=== PATIENT | female | born 1935 | race Caucasian/White ===

== ENCOUNTER → 2016-03-08 | Outpatient (CLI) | payer OTHER ==
--- NOTE | 2016-03-08 12:12 | DX ---
Bilateral Knees, 3 Views Each Side Reason for examination: Pain. Postoperative follow up; comparison to previous left knee series Sept2015. Findings: Stable postoperative changes of total left knee arthroplasty are noted. No evidence for pro sthetic loosening. Sclerotic changes involving the left patella are noted. A minimal joint effusion i s suspected on the left. Degenerative changes are noted involving the right knee with mild joint spa ce loss seen involving the medial, lateral and patellofemoral compartments. Chondrocalcinosis and men iscal calcification is suspected on the right side. No significant joint effusion is noted on the rig ht. Arterial calcifications are identified more prominent on the left. IMPRESSION: Postoperative changes of total left knee arthroplasty and degenerative changes noted invo lving the right knee.
== END ==
LOC: BMCIMAGING 10:54
PROVIDERS: ATTEND Orthopaedic Surgery
DX: M25.562 Pain in left knee (principal); Z96.652 Presence of left artificial knee joint

== ENCOUNTER → 2017-04-16 | Outpatient (CLI) | payer OTHER | LOC: FIMAGING 16:36 | PROVIDERS: ATTEND Orthopaedic Surgery | DX: Z01.818 Encounter for other preprocedural examination (principal); M17.11 Unilateral primary osteoarthritis, right knee; M11.261 Other chondrocalcinosis, right knee; M71.21 Synovial cyst of popliteal space [Baker], right knee ==

== ENCOUNTER 2017-04-23 11:45 | Inpatient (IN) | payer OTHER ==
--- NOTE | 2017-04-05 10:53 | ASMTCMCOM ---
CM Note CM Note Notes: Call from [facility] in pre-anesthesia testing, Pt having knee replacement surgery 04/23/17 and is interested in going to [facility] [place]. CM to follow once pt admits. Date Signed: 04/05/2017 10:52 AM Electronically Signed By:MANDIE Stapleton
[2017-04-25] MEDS ORDERED: ROPIVACAINE 0.2% 80 MG, EPINEPHrine 0.2 MG, KETOROLAC TROMETHAMINE 30 MG, morphINE 10 M... IU ONE (11:04)
[2017-04-26] MEDS ORDERED: NS IV ONE (06:00)
[2017-04-26] MEDS ORDERED: BUPI/epINEPH/KETOROLAC/morphINE IU ONE (06:00)
[2017-04-26] MEDS ORDERED: TRANEXAMIC ACID IV ONE (06:00)
[2017-04-26] MEDS ORDERED: CALCIUM CHLORIDE 1 GM/10 ML INJ ONE (10:21)
[2017-04-26] MEDS ORDERED: THROMBIN (BOVINE) 5,000 UNIT VIAL TP ONE (10:21)
[2017-04-26] MEDS ORDERED: ceFAZolin 1 GM/5 ML SYR ONE ×2 (10:22→15:44)
[2017-04-26] MEDS ORDERED: FAMOTIDINE 20 MG TAB PO ONE (12:02)
[2017-04-26] MEDS ORDERED: ceFAZolin 2 GM/SWFI 2 GM/20 ML SYR IVP ONE (12:02)
[2017-04-26] MEDS ORDERED: ACETAMINOPHEN 325 MG TAB PO ONE (12:02)
[2017-04-26] MEDS ORDERED: LR 1,000 ML IV ONE (12:03)
[2017-04-26] MEDS ORDERED: LIDOCAINE 1% 2 ML INJ ID PRN (12:03)
[2017-04-26] MEDS ORDERED: ALBUTEROL 3 ML DEYVIAL IH PRN (14:36)
[2017-04-26] MEDS ORDERED: HYDROCODONE/APAP 5/325 TAB PO PRN (14:36)
[2017-04-26] MEDS ORDERED: ONDANSETRON 4 MG/2 ML VIAL IVP PRN ×2 (14:36→17:35)
[2017-04-26] MEDS ORDERED: NALOXONE HCL 0.4 MG/ML INJ IVP PRN (14:36)
[2017-04-26] MEDS ORDERED: DEXAMETHASONE 4 MG/ML VIAL IVP PRN (14:36)
[2017-04-26] MEDS ORDERED: MIDAZOLAM 2 MG/2 ML VIAL IVP ONE (14:36)
[2017-04-26] MEDS ORDERED: fentaNYL 100 MCG/2 ML INJ IVP PRN (14:36)
--- NOTE | 2017-04-26 14:38 | PDANEPAE ---
ANE History of Present Illness Right TKA ANE Past Medical History - Cardiovascular History Hx Hypertension: Yes Hx Arrhythmias: No Hx Chest Pain: No Hx Coronary Artery / Peripheral Vascular Disease: No Hx CHF / Valvular Disease: No Hx Palpitations: No Cardiovascular History Comment: HYPERLIPIDEMIA. pcp monitors - Pulmonary History Hx COPD: No Hx Asthma/Reactive Airway Disease: No Hx Recent Upper Respiratory Infection: No Hx Oxygen in Use at Home: No Hx Sleep Apnea: No Sleep Apnea Screening Result - Last Documented: Negative Pulmonary History Comment: HX PE 2012 FOLLOWING BACK FUSION 2012 - Neurologic History Hx Cerebrovascular Accident: No Hx Seizures: No Hx Dementia: No Neurologic History Comment: PERIPHERAL NEUROPATHY - FEET/HANDS. hx of lumbar and cervical fusion - Endocrine History Hx Diabetes: No - Renal History Hx Renal Disorders: Yes Renal History Comment: frequency. "leaking" - Liver History Hx Hepatic Disorders: No - Neurological & Psychiatric Hx Hx Neurological and Psychiatric Disorders: No - Cancer History Hx Cancer: No Cancer History Comment: SKIN CA - Congenital Disorder History Hx Congenital Disorders: No - GI History Hx Gastrointestinal Disorders: Yes Gastrointestinal History Comment: CHRONIC CONSTIPATION - Other Health History Other Health History: wears glasses. arthritis to most joints - Chronic Pain History Chronic Pain: Yes (right knee and most joints) - Surgical History Prior Surgeries: 09/06/15 left TKA with Repine. LUMBAR FUSION 2011 ([place]). ADBDOMINAL SURG- STOMACH LESIONS 2010 ([place]). CERVICAL FUSION 2008. L MENISCUS X 2 ANE Review of Systems Review of Systems: - Exercise capacity METS (RN): 4 METS ANE Patient History - Allergies Allergies/Adverse Reactions: adhesive tape Allergy (Verified 04/04/17 12:11) Rash tramadol Allergy (Verified 04/04/17 12:11) "i just lose it, it doesn't agree with me" - Home Medications Home Medications: Acyclovir 5% [Zovirax 5% Cream 2gm (RX)] 1 evan TP DAILY PRN 02/16/14 [Last Taken 03/27/17] Aspirin [Aspirin 81mg (*)] 81 mg PO HS 02/16/14 [Last Taken 04/19/17] Cholecalciferol Vit D3 [Vitamin D3 (*)] 2,000 units PO DAILY 02/16/14 [Last Taken 04/19/17] Fluticasone Nasal [Flonase Nasal [place]] 1 sprays NASAL HS PRN 02/16/14 [Last Taken 04/24/17] Gabapentin [Neurontin 300 MG (*)] 300 mg PO TID 02/16/14 [Last Taken 04/19/17] Herbals/Supplements -Info Only 1 ea PO DAILY 02/16/14 [Last Taken 04/19/17] Multivitamins [Multivitamin (*)] 1 each PO DAILY 02/16/14 [Last Taken 04/19/17] Sertraline HCl [Zoloft 100mg (*)] 100 mg PO HS 02/16/14 [Last Taken 04/25/17] Timolol 0.5% [TIMOPTIC 0.5% (*)] 1 drops EACHEYE DAILY 02/16/14 [Last Taken 07:30] celeCOXIB [Celebrex (*)] 200 mg PO BID 02/16/14 [Last Taken 04/19/17] valACYclovir [Valtrex (*)] 2,000 mg PO BID PRN 02/16/14 [Last Taken 03/27/17] Atorvastatin Calcium [Lipitor 10 mg (*)] 5 mg PO DAILY 09/06/15 [Last Taken 09/29] Sennosides [Senokot] 1 each PO BID PRN 09/06/15 [Last Taken 08/13/15] C/E/Zn/Cu/OM3/DHA/EPA/LUT/ZEAX [Preservision Areds 2 Softgel] 1 each PO BID [Last Taken 04/19/17] Cyanocobalamin [Vitamin B12 (*)] 1,000 mcg PO DAILY 04/03/17 [Last Taken ] Hydrocodone/APAP 5/325 [[place] 5/325 (*)] 1 tab PO DAILY PRN 04/03/17 [Last Taken 08/13/15] Lisinopril [Zestril 10 mg (*)] 10 mg PO DAILY 04/03/17 [Last Taken 04/19/17] Sodium Chloride 2% [Gagandeep-128 2% (RX)] 1 drop EACHEYE BID 04/03/17 [Last Taken 07:30] diphenhydrAMINE [Benadryl 25 MG (*)] 25 mg PO HS PRN 04/03/17 [Last Taken ] - NPO status NPO Since - Liquids (Date): 04/25/17 NPO Since - Liquids (Time): 22:30 NPO Since - Solids (Date): 04/25/17 NPO Since - Solids (Time): 18:00 - Smoking Hx Smoking Status: Former smoker - Family Anes Hx Family Hx Anesthesia Complications: NONE ANE Labs/Vital Signs - Vital Signs Blood Pressure: 151/84 Heart Rate: 70 Respiratory Rate: 18 O2 Sat (%): 96 Height: 167.64 cm Weight: 72.121 kg ANE Physical Exam - Airway Neck exam: FROM Mallampati Score: Class 2 Mouth exam: normal dental/mouth exam - Pulmonary Pulmonary: clear to auscultation - Cardiovascular Cardiovascular: regular rate and rhythym - ASA Status ASA Status: III ANE Anesthesia Plan Anesthesia Plan: spinal Total IV Anesthesia: Yes
[2017-04-26] MEDS ORDERED: HYDROmorphONE/DILAUDID 2 MG/ML INJ IVP PRN (14:51)
[2017-04-26] MEDS ORDERED: PROPOFOL/EMULSION 500 MG/50 ML BOTTLE IV ONE ×2 (15:24)
[2017-04-26] MEDS ORDERED: fentaNYL 100 MCG/2 ML INJ ONE ×2 (15:26→17:06)
[2017-04-26] MEDS ORDERED: DEXAMETHASONE 4 MG/ML VIAL ONE (15:27)
[2017-04-26] MEDS ORDERED: ONDANSETRON 4 MG/2 ML VIAL ONE (15:27)
[2017-04-26] MEDS ORDERED: ROCURONIUM 50 MG/5 ML VIAL ONE (17:25)
[2017-04-26] MEDS ORDERED: METOCLOPRAMIDE 10 MG/2 ML VIAL IVP PRN (17:35)
[2017-04-26] MEDS ORDERED: PROMETHAZINE HCL 25 MG SUPPR PR PRN (17:35)
[2017-04-26] MEDS ORDERED: DIAZEPAM 5 MG TAB PO PRN (17:35)
[2017-04-26] MEDS ORDERED: MAGNESIUM HYDROXIDE 30 ML UDCUP PO PRN (17:35)
[2017-04-26] MEDS ORDERED: diphenhydrAMINE 25 MG CAP PO PRN (17:35)
[2017-04-26] MEDS ORDERED: POLYETHYLENE GLYCOL 3350 17 GM PKT PO PRN (17:35)
[2017-04-26] MEDS ORDERED: LACTULOSE 20 GM/30 ML UDCUP PO PRN (17:35)
[2017-04-26] MEDS ORDERED: DIPHENOXYLATE/ATROPINE LOMOTIL 1 TAB PO PRN (17:35)
[2017-04-26] MEDS ORDERED: BISACODYL 10 MG SUPP PR PRN (17:35)
[2017-04-26] MEDS ORDERED: ONDANSETRON DISINTEGRATING 4 MG TAB PO PRN (17:35)
[2017-04-26] MEDS ORDERED: PROMETHAZINE HCL 25 MG/ML INJ IVP PRN (17:35)
[2017-04-26] MEDS ORDERED: TEMAZEPAM 15 MG CAP PO PRN (17:35)
--- NOTE | 2017-04-26 17:35 | PDHPUP ---
History & Physical Update H&P update statement: This history and physical update is based on an assessment of the patient which was completed after admission or registration (within 24 hours), but prior to the surgery/procedure. H&P update: no change in patient's condition since H&P completed
[2017-04-26] MEDS ORDERED: ACYCLOVIR 5% TP PRN (17:36)
[2017-04-26] MEDS ORDERED: valACYclovir 500 MG TAB PO PRN (17:36)
[2017-04-26] MEDS ORDERED: LR 1,000 ML IV SCH (18:00)
[2017-04-26] MEDS ORDERED: LABETALOL HCL 5 MG/ML 20 ML MDV ONE (18:28)
[2017-04-26] MEDS: LABETALOL HCL 5 MG/ML 20 ML MDV IV PRN ×2 (18:30→18:58)
[2017-04-26] MEDS: SERTRALINE HCL 100 MG TAB PO SCH (21:27)
[2017-04-26] MEDS: TRANEXAMIC ACID 650 MG TAB PO SCH (21:27)
[2017-04-26] MEDS: FAMOTIDINE 20 MG TAB PO SCH (21:27)
[2017-04-26] MEDS: SENNOSIDES/DOCUSATE SODIUM TAB PO SCH (21:28)
[2017-04-26] MEDS: GABAPENTIN 300 MG CAP PO SCH (21:28)
[2017-04-26] MEDS: ASPIRIN 325 MG TAB PO SCH (22:10)
[2017-04-26] MEDS: ACETAMINOPHEN 325 MG TAB PO SCH (22:10)
[2017-04-26] MEDS: [UNRECOGNIZED DRUG - OTHER] EACHEYE SCH (22:11)
[2017-04-26] MEDS: SODIUM CHLORIDE 2% EACHEYE SCH (22:11)
[2017-04-27] MEDS: ACETAMINOPHEN 325 MG TAB PO SCH ×4 (00:04→18:27)
[2017-04-27] MEDS: ceFAZolin 2 GM/SWFI 2 GM/20 ML SYR IVP SCH ×2 (00:05→09:08)
[2017-04-27] MEDS: TRANEXAMIC ACID 650 MG TAB PO SCH ×3 (03:02→16:07)
[2017-04-27] MEDS: oxyCODONE IR 5 MG TAB PO PRN ×2 (05:28→09:10)
--- NOTE | 2017-04-27 06:42 | PDIAF ---
- Diagnosis Diagnosis: s/p tka Code Status: Full Code - Medication Management Discharge Medications: Medications to Continue on Transfer Acyclovir 5% [Zovirax 5% Cream 2gm (RX)] 1 evan TP DAILY PRN 02/16/14 [Last Taken 03/27/17] Aspirin [Aspirin 81mg (*)] 81 mg PO HS 02/16/14 [Last Taken 04/19/17] Cholecalciferol Vit D3 [Vitamin D3 (*)] 2,000 units PO DAILY 02/16/14 [Last Taken 04/19/17] Fluticasone Nasal [Flonase Nasal [place]] 1 sprays NASAL HS PRN 02/16/14 [Last Taken 04/24/17] Gabapentin [Neurontin 300 MG (*)] 300 mg PO TID 02/16/14 [Last Taken 04/19/17] Herbals/Supplements -Info Only 1 ea PO DAILY 02/16/14 [Last Taken 04/19/17] Multivitamins [Multivitamin (*)] 1 each PO DAILY 02/16/14 [Last Taken 04/19/17] Sertraline HCl [Zoloft 100mg (*)] 100 mg PO HS 02/16/14 [Last Taken 04/25/17] Timolol 0.5% [TIMOPTIC 0.5% (*)] 1 drops EACHEYE DAILY 02/16/14 [Last Taken 07:30] celeCOXIB [Celebrex (*)] 200 mg PO BID 02/16/14 [Last Taken 04/19/17] valACYclovir [Valtrex (*)] 2,000 mg PO BID PRN 02/16/14 [Last Taken 03/27/17] Atorvastatin Calcium [Lipitor 10 mg (*)] 5 mg PO DAILY 09/06/15 [Last Taken 09/29] Sennosides [Senokot] 1 each PO BID PRN 09/06/15 [Last Taken 08/13/15] C/E/Zn/Cu/OM3/DHA/EPA/LUT/ZEAX [Preservision Areds 2 Softgel] 1 each PO BID [Last Taken 04/19/17] Cyanocobalamin [Vitamin B12 (*)] 1,000 mcg PO DAILY 04/03/17 [Last Taken ] Hydrocodone/APAP 5/325 [[place] 5/325 (*)] 1 tab PO DAILY PRN 04/03/17 [Last Taken 08/13/15] Lisinopril [Zestril 10 mg (*)] 10 mg PO DAILY 04/03/17 [Last Taken 04/19/17] Sodium Chloride 2% [Gagandeep-128 2% (RX)] 1 drop EACHEYE BID 04/03/17 [Last Taken 07:30] diphenhydrAMINE [Benadryl 25 MG (*)] 25 mg PO HS PRN 04/03/17 [Last Taken ] Discharge Medications: Refer to the Discharge Home Medication list for PRN reason. - Orders Services needed: Physical Therapy Diet Recommendation: no restrictions on diet Diet Texture: Regular Texture Diet Activity/Weight Bearing Restrictions: wbat. rom as marshal. daily dressing changes. no soaking or immersion. may shower without bandage. f/u at two weeks [facility]. seek attn for increasing pain, redness, drainage or other focal complaint - Follow Up Care Current Providers and Referrals: Alice Michel MD [Primary Care Provider] - Demarcus Rivera MD [Medical Doctor] -
--- NOTE | 2017-04-27 07:14 | SOAPPROG ---
SOAP Progress Note Assessment/Plan: Assessment: s/p right tka Plan:wait 3 mn for snf will obtain hospitalist consult f/u at two week no acute issues mobilize with pt dvt precautions 04/27/17 07:12 Subjective: mild pain no cp or sob no dizzyness Objective: Vital Signs Temp Pulse Resp BP Pulse Ox 36.5 C 70 16 117/72 98 04/27/17 04:00 04/27/17 04:00 04/27/17 04:00 04/27/17 04:00 04/27/17 04:00 Laboratory Results 04/27/17 04:18 04/26/17 04/27/17 04/28/17 05:59 05:59 05:59 Intake Total 3230 Output Total 700 600 Balance 2530 -600 dressing intact intact pf,df,ehl toes warm and pink neg homans zaynab xrays stable anatomic alignement no fx or lucency] ICD10 Worksheet Patient Problems: Problems Problem Status Onset Arthralgia of left knee Acute
[2017-04-27] MEDS ORDERED: LISINOPRIL 10 MG TAB PO SCH (09:00)
[2017-04-27] MEDS: SENNOSIDES/DOCUSATE SODIUM TAB PO SCH ×2 (09:09→21:32)
[2017-04-27] MEDS: ATORVASTATIN CALCIUM 10 MG TAB PO SCH (09:09)
[2017-04-27] MEDS: ASPIRIN 325 MG TAB PO SCH (09:09)
[2017-04-27] MEDS: FAMOTIDINE 20 MG TAB PO SCH ×2 (09:09→21:32)
[2017-04-27] MEDS: GABAPENTIN 300 MG CAP PO SCH ×3 (09:10→21:31)
[2017-04-27] MEDS: [UNRECOGNIZED DRUG - OTHER] EACHEYE SCH ×2 (10:05→21:34)
[2017-04-27] MEDS: SODIUM CHLORIDE 2% EACHEYE SCH ×2 (10:05→21:34)
--- NOTE | 2017-04-27 10:57 | PDMN ---
Medical Necessity Medical necessity: Change to IP, as of 04/27/17, per MD; los >2 mn s/p R TKA POD #1; pt with decreased strength, unsafe to dc home independently; admit for further monitoring & therapies; comorbid advanced age; per progress note & order 04/27/17
[2017-04-27] MEDS ORDERED: diphenhydrAMINE 25 MG CAP PO PRN (13:33)
[2017-04-27] MEDS: HYDROCODONE/APAP 5/325 TAB PO PRN ×2 (13:50→16:51)
[2017-04-27] MEDS ORDERED: TRANEXAMIC ACID 650 MG TAB PO ONE (14:00)
[2017-04-27] MEDS: TIMOLOL 0.5% 15 ML OPHT.BTL EACHEYE SCH (14:01)
--- NOTE | 2017-04-27 14:06 | GCON ---
[f rep st] CONSULTATION DATE OF CONSULTATION: 04/27/2017 REFERRING PHYSICIAN: Demarcus Rivera MD CONSULTING QUESTION: Medical management. HISTORY OF PRESENT ILLNESS: An 81-year-old female presenting for elective right total knee arthropla sty. The patient is postop and feeling well without specific complaint. No complications noted duri ng her surgical intervention and actively denying any shortness of breath, chest pain, palpitations, or abdominal upset. She has experienced some urinary retention. Denies dysuria. Denies hematuria. Has mild constipation and reports this is often common for her. Denies any lower extremity edema. Does believe the block from her surgery is wearing off and starting to have more sensation in her a l eg. Has been comfortable ambulating. PAST MEDICAL HISTORY: 1. Glaucoma. 2. Hypertension. SOCIAL HISTORY: Positive for a 15-xaky-wrwa history of smoking, none currently. 1 scotch in the [employer]. No illicit drugs or marijuana. FAMILY HISTORY: Positive for heart disease in her father. REVIEW OF SYSTEMS: A 10-point review of systems is negative with the exception of reported in the HP I. PHYSICAL EXAMINATION: VITAL SIGNS: Blood pressure is 101/55, heart rate 63, respiratory rate 16, sa tting 93% in room air, afebrile. GENERAL: This is a very pleasant 81-year-old female in no acute dis tress. HEENT: Notable for moist mucous membranes. Eyes negative for any icterus. CARDIAC: Regula r rate and rhythm. A quiet systolic murmur is appreciated. GASTROINTESTINAL: Positive bowel sounds . Abdomen soft and nontender. MUSCULOSKELETAL: Negative for any lower extremity edema. SCDs are in place. SKIN: Negative for any rashes. NEUROLOGIC: Alert and oriented x3. PSYCHIATRIC: Pleasant and cooperative on interview and examination. DATA: Hemoglobin 9.2, hematocrit is 28.1. Knee x-ray, which I personally reviewed and interpreted, shows appropriate postoperative alignment. ASSESSMENT AND PLAN: This is an 81-year-old female status post elective total knee arthroplasty. 1. Hypertension: Patient's blood pressures are borderline low at this time. Will put her single an tihypertensive on hold currently. If her blood pressures rebound back up, we can reinitiate in the m orning. She has received appropriate fluids and is taking p.o. meals and medications. Suspect will see normal rebound of her pressures by tomorrow. 2. Glaucoma: Will ask that the pharmacist reconcile all the remaining eyedrops on her list, so we c an continue her home medications. 3. Acute urinary retention: Suspect likely related to intraoperative sedation and pain medications. Will bladder scan and straight cath for greater than 700 mL in her bladder. Optimistic she will li palmira start urinating without complication in the next 24 hours. She does have a history of postop ur inary tract infections. We will send her urine for analysis next time she voids. 4. Depression: Will continue her outpatient medications without change.. 5. Prophylaxis: Per the orthopedic surgeons. 6. Diet: Regular. DISPOSITION: I expect greater than 2 midnights as the patient is recovering postoperatively. Will n eed therapy evaluations for safe disposition. , I have discussed the case with the RN. Will continue p.r.n. straight cathing until the patient begins voiding on her home. Thank you for the consultation. We will follow along with. /[id number]/MODL
--- NOTE | 2017-04-27 14:25 | ASMTCMCOM ---
CM Note CM Note Notes: Pt s/p elective TKA. Pt lives alone in a second floor apartment w adult dghtr local. PT/OT rec SNF, pt requests referral to [facility] which was sent in [employer]. D/c plan of care: SNF when medically stable Date Signed: 04/27/2017 02:24 PM Electronically Signed By:MADNIE Stapleton
[2017-04-27] MEDS: SERTRALINE HCL 100 MG TAB PO SCH (21:32)
[2017-04-28] MEDS: ACETAMINOPHEN 325 MG TAB PO SCH ×4 (01:30→12:32)
[2017-04-28] MEDS: HYDROCODONE/APAP 5/325 TAB PO PRN ×3 (07:15→20:50)
[2017-04-28] MEDS: ATORVASTATIN CALCIUM 10 MG TAB PO SCH (09:04)
[2017-04-28] MEDS: GABAPENTIN 300 MG CAP PO SCH ×3 (09:04→20:51)
[2017-04-28] MEDS: ASPIRIN 325 MG TAB PO SCH (09:04)
[2017-04-28] MEDS: SENNOSIDES/DOCUSATE SODIUM TAB PO SCH ×2 (09:05→20:51)
[2017-04-28] MEDS: FAMOTIDINE 20 MG TAB PO SCH ×2 (09:05→20:51)
[2017-04-28] MEDS: [UNRECOGNIZED DRUG - OTHER] EACHEYE SCH ×2 (09:06→20:49)
[2017-04-28] MEDS: SODIUM CHLORIDE 2% EACHEYE SCH ×2 (09:06→20:49)
[2017-04-28] MEDS: TIMOLOL 0.5% 15 ML OPHT.BTL EACHEYE SCH (09:12)
--- NOTE | 2017-04-28 09:24 | PDIAF ---
- Diagnosis Diagnosis: s/p tka Code Status: Full Code - Medication Management Discharge Medications: Medications to Continue on Transfer Acyclovir 5% [Zovirax 5% Cream 2gm (RX)] 1 evan TP DAILY PRN 02/16/14 [Last Taken 03/27/17] Aspirin [Aspirin 81mg (*)] 81 mg PO HS 02/16/14 [Last Taken 04/19/17] Cholecalciferol Vit D3 [Vitamin D3 (*)] 2,000 units PO DAILY 02/16/14 [Last Taken 04/19/17] Fluticasone Nasal [Flonase Nasal [place]] 1 sprays NASAL HS PRN 02/16/14 [Last Taken 04/24/17] Gabapentin [Neurontin 300 MG (*)] 300 mg PO TID 02/16/14 [Last Taken 04/19/17] Herbals/Supplements -Info Only 1 ea PO DAILY 02/16/14 [Last Taken 04/19/17] Multivitamins [Multivitamin (*)] 1 each PO DAILY 02/16/14 [Last Taken 04/19/17] Sertraline HCl [Zoloft 100mg (*)] 100 mg PO HS 02/16/14 [Last Taken 04/25/17] Timolol 0.5% [TIMOPTIC 0.5% (*)] 1 drops EACHEYE DAILY 02/16/14 [Last Taken 07:30] celeCOXIB [Celebrex (*)] 200 mg PO BID 02/16/14 [Last Taken 04/19/17] valACYclovir [Valtrex (*)] 2,000 mg PO BID PRN 02/16/14 [Last Taken 03/27/17] Atorvastatin Calcium [Lipitor 10 mg (*)] 5 mg PO DAILY 09/06/15 [Last Taken 09/29] Sennosides [Senokot] 1 each PO BID PRN 09/06/15 [Last Taken 08/13/15] C/E/Zn/Cu/OM3/DHA/EPA/LUT/ZEAX [Preservision Areds 2 Softgel] 1 each PO BID [Last Taken 04/19/17] Cyanocobalamin [Vitamin B12 (*)] 1,000 mcg PO DAILY 04/03/17 [Last Taken ] Lisinopril [Zestril 10 mg (*)] 10 mg PO DAILY 04/03/17 [Last Taken 04/19/17] Sodium Chloride 2% [Gagandeep-128 2%] 1 drop EACHEYE BID 04/03/17 [Last Taken 07:30] diphenhydrAMINE [Benadryl 25 MG (*)] 25 mg PO HS PRN 04/03/17 [Last Taken ] Aspirin [Aspirin 325 mg (*)] 325 mg PO DAILY tab 04/28/17 [Last Taken Unknown] Hydrocodone/APAP 5/325 [[place] 5/325 (*)] 1 - 2 tab PO Q4HRS PRN #60 tab [Last Taken Unknown] Discharge Medications: Refer to the Discharge Home Medication list for PRN reason. - Orders Services needed: Physical Therapy Diet Recommendation: no restrictions on diet Diet Texture: Regular Texture Diet Activity/Weight Bearing Restrictions: wbat. rom as marshal. daily dressing changes. no soaking or immersion. may shower without bandage. f/u at two weeks [facility]. seek attn for increasing pain, redness, drainage or other focal complaint - Follow Up Care Current Providers and Referrals: Alice Michel MD [Primary Care Provider] - Demarcus Rivera MD [Medical Doctor] -
--- NOTE | 2017-04-28 09:26 | SOAPPROG ---
SOAP Progress Note Assessment/Plan: Assessment: s/p right tka Plan:wait 3 mn for snf will obtain hospitalist consult f/u at two week no acute issues mobilize with pt dvt precautions AWAITING 3 MN TO D/C TO SNF NO INPATIENT NEEDS 04/27/17 07:12 04/28/17 09:24 Subjective: no complaints Objective: Vital Signs Temp Pulse Resp BP Pulse Ox 36.7 C 81 18 125/71 H 88 L 04/28/17 07:18 04/28/17 07:18 04/28/17 07:18 04/28/17 07:18 04/28/17 07:18 Laboratory Results 04/28/17 04:26 04/27/17 04/28/17 04/29/17 05:59 05:59 05:59 Intake Total 3230 Output Total 700 700 300 Balance 2530 -700 -300 dressing clean, dry amd intact intact pf,df,ehl toes warm and ppink neg homans zaynab ICD10 Worksheet Patient Problems: Problems Problem Status Onset Arthralgia of left knee Acute
--- NOTE | 2017-04-28 14:01 | HOSPPROG ---
Hospitalist Progress Note Assessment/Plan: 81 yo F pod 2 s/p TKA hypotension: not uncommon for people to not require antihypertensives in first few days after surgery continue to hold lisinopril proph: vte proph per ortho pain: well controlled hypoxemia: continue IS, prn o2 Subjective: pain well controlled. case d/w dr velazquez Objective: Vital Signs Temp Pulse Resp BP Pulse Ox 36.5 C 86 18 98/57 L 96 04/28/17 12:42 04/28/17 12:42 04/28/17 12:42 04/28/17 12:42 04/28/17 12:42 Laboratory Results 04/28/17 04:26 04/27/17 04/28/17 04/29/17 05:59 05:59 05:59 Intake Total 3230 Output Total 700 700 300 Balance 2530 -700 -300 - Physical Exam Constitutional: no apparent distress, appears nourished Eyes: PERRL, anicteric sclera Ears, Nose, Mouth, Throat: moist mucous membranes, hearing normal Cardiovascular: regular rate and rhythym, no murmur, rub, or gallop Respiratory: no respiratory distress, no rales or rhonchi Gastrointestinal: normoactive bowel sounds, soft, non-tender abdomen Genitourinary: no bladder fullness, No gilbert in urethra Skin: warm, normal color Musculoskeletal: full muscle strength, no muscle tenderness Neurologic: AAOx3 ICD10 Worksheet Patient Problems: Problems Problem Status Onset Arthralgia of left knee Acute
[2017-04-28] MEDS: FLUTICASONE NASAL 120 SPRAYS/16 GM MDI NS PRN (20:50)
[2017-04-28] MEDS: SERTRALINE HCL 100 MG TAB PO SCH (20:51)
[2017-04-29] MEDS: ACETAMINOPHEN 325 MG TAB PO SCH ×5 (00:24→23:04)
[2017-04-29] MEDS: GABAPENTIN 300 MG CAP PO SCH ×3 (08:19→23:04)
[2017-04-29] MEDS: SENNOSIDES/DOCUSATE SODIUM TAB PO SCH ×2 (08:19→23:04)
[2017-04-29] MEDS: ASPIRIN 325 MG TAB PO SCH (08:19)
[2017-04-29] MEDS: ATORVASTATIN CALCIUM 10 MG TAB PO SCH (08:19)
[2017-04-29] MEDS: FAMOTIDINE 20 MG TAB PO SCH ×2 (08:19→23:04)
[2017-04-29] MEDS: [UNRECOGNIZED DRUG - OTHER] EACHEYE SCH ×2 (08:31→23:06)
[2017-04-29] MEDS: SODIUM CHLORIDE 2% EACHEYE SCH ×2 (08:31→23:06)
[2017-04-29] MEDS: TIMOLOL 0.5% 15 ML OPHT.BTL EACHEYE SCH (08:36)
--- NOTE | 2017-04-29 15:26 | HOSPPROG ---
Hospitalist Progress Note Assessment/Plan: 81 yo F pod 3 s/p TKA hypotension: not uncommon for people to not require antihypertensives in first few days after surgery continue to hold lisinopril suspect can restart lisinopril in AM 04/30 proph: vte proph per ortho pain: well controlled hypoxemia: continue IS, prn o2 Subjective: bp improving. pain well controlled. moved bowels Objective: Vital Signs Temp Pulse Resp BP Pulse Ox 36.4 C 74 18 147/75 H 91 L 04/29/17 08:29 04/29/17 08:29 04/29/17 08:29 04/29/17 08:29 04/29/17 08:29 Laboratory Results 04/28/17 04:26 04/28/17 04/29/17 04/30/17 05:59 05:59 05:59 Output Total 700 300 Balance -700 -300 - Physical Exam Constitutional: no apparent distress, appears nourished Eyes: PERRL, anicteric sclera Ears, Nose, Mouth, Throat: moist mucous membranes, hearing normal Cardiovascular: regular rate and rhythym, no murmur, rub, or gallop Respiratory: no respiratory distress, no rales or rhonchi Gastrointestinal: normoactive bowel sounds, soft, non-tender abdomen Genitourinary: no bladder fullness, No gilbert in urethra Skin: warm, normal color Musculoskeletal: full muscle strength, no muscle tenderness Neurologic: AAOx3 ICD10 Worksheet Patient Problems: Problems Problem Status Onset Arthralgia of left knee Acute
[2017-04-29 15:38] VITALS: RESP 16
[2017-04-29] MEDS: SERTRALINE HCL 100 MG TAB PO SCH (23:04)
[2017-04-29] MEDS: FLUTICASONE NASAL 120 SPRAYS/16 GM MDI NS PRN (23:15)
[2017-04-30] MEDS: ACETAMINOPHEN 325 MG TAB PO SCH ×2 (05:48→11:34)
--- NOTE | 2017-04-30 06:52 | PDIAF ---
- Diagnosis Diagnosis: s/p tka Code Status: Full Code - Medication Management Discharge Medications: Medications to Continue on Transfer Acyclovir 5% [Zovirax 5% Cream 2gm (RX)] 1 evan TP DAILY PRN 02/16/14 [Last Taken 03/27/17] Aspirin [Aspirin 81mg (*)] 81 mg PO HS 02/16/14 [Last Taken 04/19/17] Cholecalciferol Vit D3 [Vitamin D3 (*)] 2,000 units PO DAILY 02/16/14 [Last Taken 04/19/17] Fluticasone Nasal [Flonase Nasal [place]] 1 sprays NASAL HS PRN 02/16/14 [Last Taken 04/24/17] Gabapentin [Neurontin 300 MG (*)] 300 mg PO TID 02/16/14 [Last Taken 04/19/17] Herbals/Supplements -Info Only 1 ea PO DAILY 02/16/14 [Last Taken 04/19/17] Multivitamins [Multivitamin (*)] 1 each PO DAILY 02/16/14 [Last Taken 04/19/17] Sertraline HCl [Zoloft 100mg (*)] 100 mg PO HS 02/16/14 [Last Taken 04/25/17] Timolol 0.5% [TIMOPTIC 0.5% (*)] 1 drops EACHEYE DAILY 02/16/14 [Last Taken 07:30] celeCOXIB [Celebrex (*)] 200 mg PO BID 02/16/14 [Last Taken 04/19/17] valACYclovir [Valtrex (*)] 2,000 mg PO BID PRN 02/16/14 [Last Taken 03/27/17] Atorvastatin Calcium [Lipitor 10 mg (*)] 5 mg PO DAILY 09/06/15 [Last Taken 09/29] Sennosides [Senokot] 1 each PO BID PRN 09/06/15 [Last Taken 08/13/15] C/E/Zn/Cu/OM3/DHA/EPA/LUT/ZEAX [Preservision Areds 2 Softgel] 1 each PO BID [Last Taken 04/19/17] Cyanocobalamin [Vitamin B12 (*)] 1,000 mcg PO DAILY 04/03/17 [Last Taken ] Lisinopril [Zestril 10 mg (*)] 10 mg PO DAILY 04/03/17 [Last Taken 04/19/17] Sodium Chloride 2% [Gagandeep-128 2%] 1 drop EACHEYE BID 04/03/17 [Last Taken 07:30] diphenhydrAMINE [Benadryl 25 MG (*)] 25 mg PO HS PRN 04/03/17 [Last Taken ] Aspirin [Aspirin 325 mg (*)] 325 mg PO DAILY tab 04/28/17 [Last Taken Unknown] Hydrocodone/APAP 5/325 [[place] 5/325 (*)] 1 - 2 tab PO Q4HRS PRN #60 tab [Last Taken Unknown] Acetaminophen [Tylenol 325mg (*)] 650 mg PO Q6HRS tab 04/30/17 [Last Taken Unknown] Discharge Medications: Refer to the Discharge Home Medication list for PRN reason. - Orders Services needed: Physical Therapy Diet Recommendation: no restrictions on diet Diet Texture: Regular Texture Diet Activity/Weight Bearing Restrictions: wbat. rom as marshal. daily dressing changes. no soaking or immersion. may shower without bandage. f/u at two weeks [facility]. seek attn for increasing pain, redness, drainage or other focal complaint - Follow Up Care Current Providers and Referrals: Alice Michel MD [Primary Care Provider] - Demarcus Rivera MD [Medical Doctor] -
--- NOTE | 2017-04-30 06:53 | SOAPPROG ---
SOAP Progress Note Assessment/Plan: Assessment: s/p right tka Plan:wait 3 mn for snf will obtain hospitalist consult f/u at two week no acute issues mobilize with pt dvt precautions AWAITING 3 MN TO D/C TO SNF NO INPATIENT NEEDS 04/27/17 07:12 04/28/17 09:24 Subjective: no co Objective: Vital Signs Temp Pulse Resp BP Pulse Ox 36.3 C 75 16 125/67 H 95 04/30/17 00:00 04/30/17 00:00 04/30/17 00:00 04/30/17 00:00 04/30/17 00:00 Laboratory Results 04/28/17 04:26 04/29/17 04/30/17 05/01/17 05:59 05:59 05:59 Intake Total 1000 Output Total 300 400 Balance -300 600 dressing intact intact pf,df,ehl toes warm and pink neg homans zaynab ICD10 Worksheet Patient Problems: Problems Problem Status Onset Arthralgia of left knee Acute
--- NOTE | 2017-04-30 07:25 | GDS ---
[f rep st] DISCHARGE SUMMARY ADMITTING DIAGNOSIS: Right knee degenerative joint disease. DISCHARGE DIAGNOSIS: Right knee degenerative joint disease. PROCEDURE: Right total knee arthroplasty. HISTORY OF PRESENT ILLNESS: The patient is an 81-year-old woman who presents for elective right tota l knee arthroplasty. She has end-stage arthritis. Clinical and radiographic features are consistent with this. She has failed all attempts at conservative management. HOSPITAL COURSE: The patient was admitted to the hospital floor on 04/26/2017 after uncomplicated to shilpi knee arthroplasty. She sat 4 midnights for Medicare guidance. Had no complications. At the leonidas e of discharge, she is tolerating an oral diet. Her pain is well-controlled on oral medicines. She is voiding without difficulty. Dressing is clean, dry, and intact. She has negative Homans. X-rays are anatomic. DISCHARGE ACTIVITY: Weightbearing as tolerated. Range of motion as tolerated. Dressing changes as appropriate. FOLLOWUP: Follow up in 2 weeks. Seek attention for increasing redness, swelling, drainage, discharg e, calf pain, or other focal complaint. /[id number]/MODL
[2017-04-30 07:39] VITALS: BP 140/73; PULSE 82; TEMP 98.1; O2SAT 93
[2017-04-30] MEDS: SODIUM CHLORIDE 2% EACHEYE SCH (09:33)
[2017-04-30] MEDS: [UNRECOGNIZED DRUG - OTHER] EACHEYE SCH (09:33)
[2017-04-30] MEDS: FAMOTIDINE 20 MG TAB PO SCH (09:34)
[2017-04-30] MEDS: ATORVASTATIN CALCIUM 10 MG TAB PO SCH (09:34)
[2017-04-30] MEDS: GABAPENTIN 300 MG CAP PO SCH (09:34)
[2017-04-30] MEDS: ASPIRIN 325 MG TAB PO SCH (09:35)
[2017-04-30] MEDS: SENNOSIDES/DOCUSATE SODIUM TAB PO SCH (09:36)
[2017-04-30] MEDS: TIMOLOL 0.5% 15 ML OPHT.BTL EACHEYE SCH (09:38)
--- NOTE | 2017-04-30 09:52 | ASMTLACE ---
JUSTINOE Length of stay for Answers: 3 days current admission Acuity / Level of Answers: Yes Care: Did the patient have an inpatient admission? Comorbidities - select Answers: Opioid dependence all that apply / Chronic pain Other Notes: HTN, HLD, # of Emergency department Answers: 1-2 visits in the last 6 months Social determinants Answers: Mental health diagnosis (anxiety, depression, pers onality disorders, etc.) Score: 15 Date Signed: 04/30/2017 09:51 AM Electronically Signed By:Teresita Thompson RN
--- NOTE | 2017-04-30 18:04 | ASDISCHSUM ---
Discharge Information Plan Status:SNF Medically Cleared to Leave: Discharge Date:04/30/2017 11:44 AM CM D/C Disposition:Custodial Facility ADT D/C Disposition:Custodial Facility Projected Discharge Date:04/30/2017 11:00 AM Transportation at D/C: Discharge Delay Reason: Follow-Up Date:04/30/2017 11:00 AM Discharge Slot: Final Diagnosis: Placement Information Referral Type:*Long Term/SNF Referral ID:[id number] Provider Name:Radha Nesbitt [place] Address 1[address] Phone Number: Address 2: Fax Number: City:[place] Selection Factors: State:[place] Patient Contact Information Contact Name:LEANNAHONORIO Relationship:Daughter Address:[address] Home Phone: City:[place] Alternate Phone: [facility] Code:[place] [address] Email: Financial Information Financial Class:Medicare Primary Plan Desc:MEDICARE INPATIENT Primary Plan Number:[id number] Secondary Plan Desc:[employer] Secondary Plan Number:[id number] Assessment Information [facility] Progress Note CM Note CM Note Notes: Call from Nakia in pre-anesthesia testing, Pt having knee replacement surgery 04/23/17 and is interested in going to [facility] to follow once pt admits. Date Signed: 04/05/2017 10:52 AM Electronically Signed By:MANDIE Stapleton LACE LACE Length of stay for Answers: 3 days current admission Acuity / Level of Answers: Yes Care: Did the patient have an inpatient admission? Comorbidities - select Answers: Opioid dependence all that apply / Chronic pain Other Notes: HTN, HLD, # of Emergency department Answers: 1-2 visits in the last 6 months Social determinants Answers: Mental health diagnosis (anxiety, depression, pers onality disorders, etc.) Score: 15 Date Signed: 04/30/2017 09:51 AM Electronically Signed By:Teresita Thompson RN [facility] CM Progress Note CM Note CM Note Notes: Pt s/p elective TKA. Pt lives alone in a second floor apartment w adult [facility] [address]. PT/OT rec SNF, pt requests referral [facility] D/c plan of care: SNF when medically stable Date Signed: 04/27/2017 02:24 PM Electronically Signed By:MANDIE Stapleton Case Management Discharge Plan Note Case Management Discharge Discharge Order Complete? Answers: Yes Patient to Obtain Answers: Other Notes: [facility] Transportation Arranged Answers: Other Notes: [facility] will Pick (Date 04/30/2017 11:30 AM & Time) Faxed Final Orders Answers: Yes Agency/Facility Transfer Answers: Yes Report Printed & Faxed to Receiving Agency Family Notified Answers: Yes Discharge Comments Notes: Pt will dc to [facility] today. Spoke w/Chris at [facility] and they are ready to accept; orders and info sent through [employer]. Met w/pt and daughter and they are in agreement w/dc poc. Discussed w/RN who will call report. Date Signed: 04/30/2017 09:49 AM Electronically Signed By:Teresita Thompson RN Intervention Information Intervention Type:*IM-Signed Date of Service:04/30/2017 10:45 AM Patient Type:Inpatient Staff Member:Dai Richmond Hours: Discipline: Severity: Comment:
--- NOTE | 2017-05-03 11:21 | POSTANESTH ---
Post Anesthetic Evaluation Cardiovascular Status: Normal, Stable Respiratory Status: Normal, Stable Level of Consciousness/Mental Status: Alert and Oriented Pain Control: Adequate, Prn Tx Ordered Nausea/Vomiting Control: Adequate, Prn Tx Ordered Complications Possibly Related to Anesthesia: None Noted
--- NOTE | 2017-05-05 20:56 | GOP ---
[f rep st] OPERATIVE REPORT DATE OF OPERATION: 04/26/2017 SURGEON: Demarcus Rivera MD ELEMENTARY ASSISTANT TEACHER: Hao Samuel, MEDICATION TECH, JACK SPINNER, surgical dental assistant, who was a medical necessity for the entirety of the case. PREOPERATIVE DIAGNOSIS: Right knee degenerative joint disease. POSTOPERATIVE DIAGNOSIS: Right knee degenerative joint disease. PROCEDURE PERFORMED: Right total knee arthroplasty. FINDINGS: SPECIMENS: To pathology: None other than the bony cuts. ESTIMATED BLOOD LOSS: 100 cc. INDICATIONS: The patient is an 81-year-old woman with end-stage arthritis to her right knee. Clinic al and radiographic features are consistent with this. She has failed all attempts at conservative m anagement. I have therefore recommended total knee replacement. She understood the risks, benefits, and alternatives and wished to proceed. Written consent was signed and placed in patient's chart. DESCRIPTION OF PROCEDURE: The patient was identified in the preanesthesia area. The right knee te rly demarcated as the operative site with indelible marker. She was given 2 g of Ancef intravenously en route to the operative suite. In the OR, general endotracheal anesthesia was administered. Atte ntion was turned to the right knee which was sterilely prepped and draped in the usual fashion. Appr opriate time-out procedure was carried out. The limb was exsanguinated with an Esmarch bandage, tour niquet inflated to 275 mmHg. Standard anterior midline incision was made. Also, a tibial incision w as made for 2 percutaneous pins for the tibial reference array. Thick subcutaneous flaps were elevat ed followed by medial parapatellar arthrotomy. Subperiosteal dissection was carried out to the mid c oronal plane. Retractors were then placed. The knee demonstrated advanced arthritis. Decision was made to proceed with total knee arthroplasty. The femoral and tibial reference arrays were then affi xed. The femoral and tibial check points were then affixed. All bony landmarks were entered into [employer] computer in standard fashion. The knee was brought through flexion and extension, and the knee was balanced with appropriate implant positioning. The robot MAKOplasty assistant property manager was used to make rese ctions for a size 3 femur, size 3 tibia. A trochlear box cut was then cut using an oscillating saw, and this was reduced over a size 3 x 15 mm polyethylene. Ultimately, 3 x 19 mm polyethylene spacer w as selected to restore balance to the knee. The patella was then cut with freehand cutting technique and drill holes made for a size 38 mm poly patella. All trial components were withdrawn. In a sequ ential fashion, the tibia, femoral, and patellar components were then press fit and confirmed to be f ully seated. A size 3 x 19 mm tibial bearing insert was then placed. This allowed full extension of the knee and flexion to 120 degrees without instability through the flexion-extension arc. The woun d was copiously irrigated. The capsule and soft tissue were injected with a joint cocktail of ropiva radha, morphine, Toradol, and epinephrine. Medial parapatellar arthrotomy closed using #1 Ethibond. The knee instilled with platelet-rich plasma. Subcutaneous tissues closed using 2-0 Quill, and the skin was stapled. Sterile dressing was applied with a silver dressing followed by the patient being awakened and taken to recovery room in good stable condition. TOTAL TOURNIQUET TIME: 60 minutes. COMPLICATIONS: None. IMPLANTS: Triathlon PS femur, size 3; tibial insert, size 3; 3 x 19 mm polyethylene spacer; and a 38 mm All-Poly patella. /[id number]/MODL
== END 2017-04-30 11:44 | DRG 470 ==
LOC: F3N 04-26 11:24 → INTOOBSV 04-26 11:24 → F3N 04-26 20:12 → OBSVTOIN 04-27 10:30
PROVIDERS: ADMIT Orthopaedic Surgery; ATTEND Orthopaedic Surgery
PROC: 8E0YXCZ Robotic Assisted Procedure of Lower Extremity (ICD-10-PCS; principal; 2017-04-26 14:00)
PROC: 0SRC0JZ Replacement of Right Knee Joint with Synthetic Substitute, Open Approach (ICD-10-PCS; principal; 2017-04-26 14:00)
DX: M17.11 Unilateral primary osteoarthritis, right knee (principal); I10 Essential (primary) hypertension; I95.81 Postprocedural hypotension; H40.9 Unspecified glaucoma; R33.9 Retention of urine, unspecified; R09.02 Hypoxemia; K59.00 Constipation, unspecified; F17.210 Nicotine dependence, cigarettes, uncomplicated
CPT/HCPCS: 97110-GP; 97116-GP; 97161-GP; 97165-GO; 97530-GO; 97530-GP; 97535-GO; G8978-GP-CJ; G8979-GP-CI; G8980-GP-CJ; G8987-GO-CI; G8988-GO-CI; G8989-GO-CI; J0171; J0690; J1100; J1885; J2250; J2270; J2405; J2704; J3010

== ENCOUNTER → 2017-05-28 | Outpatient (CLI) | payer OTHER | LOC: BMCIMAGING 11:30 | PROVIDERS: ATTEND Orthopaedic Surgery | DX: Z47.1 Aftercare following joint replacement surgery (principal); Z96.651 Presence of right artificial knee joint ==

== ENCOUNTER → 2017-07-11 | Outpatient (CLI) | payer OTHER | LOC: BHFA 13:30 | PROVIDERS: ATTEND Internal Medicine Cardiovascular Disease | DX: R06.02 Shortness of breath (principal) | CPT/HCPCS: 78452; 93017; A9500; J2785 ==

== ENCOUNTER → 2017-07-31 | Outpatient (CLI) | payer OTHER | LOC: BMCIMAGING 11:08 | PROVIDERS: ATTEND Orthopaedic Surgery | DX: Z47.1 Aftercare following joint replacement surgery (principal); M25.461 Effusion, right knee; Z96.651 Presence of right artificial knee joint ==

== ENCOUNTER → 2017-11-08 | Outpatient (CLI) | payer OTHER | LOC: BMCIMAGING 09:22 | PROVIDERS: ATTEND Orthopaedic Surgery | DX: Z47.1 Aftercare following joint replacement surgery (principal); Z96.651 Presence of right artificial knee joint ==